=== PATIENT | female | born 1965 | race Caucasian/White ===

== ENCOUNTER 2024-05-31 15:15 | Emergency (ER) | payer BC ==
[2024-05-31] MEDS ORDERED: Boostrix 0.5 ML (Tdap) VIAL (>/=7 yrs of age) ONE (15:43)
== END 2024-05-31 16:07 | disposition home or self-care (01) ==
LOC: BURERS 15:15
DX: S00.31XA Abrasion of nose, initial encounter (principal); E03.9 Hypothyroidism, unspecified; Z79.899 Other long term (current) drug therapy
CPT/HCPCS: 90471; 90715